=== PATIENT | female | born 1985 | race Caucasian/White ===

== ENCOUNTER → 2016-12-25 | Outpatient (CLI) | payer SELFPAY ==
[2016-05-25 10:42] VITALS: BP 115/75
[~2016-12-25] MED LIST: GABA-585 PO; HYDR-971 PO; LISI1TAB3 PO; NAPR500T PO; OMEP20CA9 PO; ONDA4TAB7 PO; ONDA8TAB12 PO; OXYC-323 PO; OXYC1TAB7 PO; PROVENTIL HFA6.7 GM IH; SERT100T PO
[2016-12-25 11:38] LABS: BASO # 0.1 x10^3/uL (0.0-0.2); BASO % 1 % (0-3); EOS % 5 % (0-3); HEMATOCRIT 40.6 % (36.0-47.0); HEMOGLOBIN 13.7 g/dL (12.0-15.5); LYMPH # 2.5 x10^3/uL (1.0-4.8); LYMPH % 37 % (24-48); MEAN CORPUSCULAR HEMOGLOBIN 29 pg (25-35); MEAN CORPUSCULAR HGB CONC 34 g/dL (31-37); MEAN CORPUSCULAR VOLUME 86 fL (79-100); MONO % 8 % (0-9); NEUT % 49 % (31-73); PLATELET COUNT 273 x10^3/uL (140-400); RED BLOOD COUNT 4.73 x10^6/uL (3.50-5.40); RED CELL DISTRIBUTION WIDTH 14.6 % (11.5-14.5); WHITE BLOOD COUNT 6.9 x10^3/uL (4.0-11.0)
[2016-12-25 11:58] LABS: ALBUMIN 3.8 g/dL (3.4-5.0); CALCIUM 8.3 mg/dL (8.5-10.1); CREATININE 0.8 mg/dL (0.6-1.0); GFR 83.1; POTASSIUM 3.9 mmol/L (3.5-5.1); TOTAL BILIRUBIN 0.5 mg/dL (0.2-1.0); TOTAL PROTEIN 7.6 g/dL (6.4-8.2)
== END | disposition home or self-care (01) ==
LOC: LAB 11:08
PROVIDERS: ATTEND Family Medicine
DX: R93.8 Abnormal findings on diagnostic imaging of other specified body structures (principal); R11.2 Nausea with vomiting, unspecified
CPT/HCPCS: 36415; 80053; 85027

== ENCOUNTER → 2017-06-04 | Outpatient (CLI) | payer OTHER ==
[2016-05-25 10:42] VITALS: BP 115/75
[~2017-06-04] MED LIST changes: +NAPR-683 PO; -NAPR500T PO
--- NOTE | 2017-06-04 21:58 | RAD ---
CT head INDICATION: Head injury at work yesterday, nausea and severe headache. TECHNIQUE: CT head without IV contrast. COMPARISON: Previous CT had from 08/27/2015. FINDINGS: No pathologic extra-axial or intra-axial fluid collection. The ventricles and basal cisterns are within normal limits. No acute intracranial bleed. No focal loss of brady-white differentiation. The visualized orbits are within normal limits. No calvarial fractures. Visualized paranasal sinuses and mastoid air cells are clear. IMPRESSION: No acute intracranial process. Electronically signed by: Zaheer Anderson DO (06/04/2017 9:55 PM) [facility]
== END | disposition home or self-care (01) ==
LOC: RAD 18:21
PROVIDERS: ATTEND Preventive Medicine Occupational Medicine
DX: S09.90XA Unspecified injury of head, initial encounter (principal); R11.0 Nausea; X58.XXXA Exposure to other specified factors, initial encounter; Y93.89 Activity, other specified; Y92.89 Other specified places as the place of occurrence of the external cause; Y99.8 Other external cause status
CPT/HCPCS: 70450

== ENCOUNTER 2018-04-23 10:05 | Emergency (ER) | payer OTHER ==
[~2018-04-23] VITALS: Ht 180.3 cm; Wt 128.8 kg
[2018-04-23] MEDS: methylPREDNISolone SOD SUCC PF 125 MG/2 ML VIAL. IV ONE (10:46)
[2018-04-23] MEDS: FAMOTIDINE 20 MG/2 ML VIAL IVP ONE (10:46)
[2018-04-23] MEDS: IV NORMAL SALINE 1000ML BAG 1,000 ML IV ONE (10:46)
[2018-04-23] MEDS: NAPROXEN 500 MG TABLET PO STA (11:21)
[2018-04-23 12:20] VITALS: BP 111/77
[2018-04-23] MEDS ORDERED: PRED50TA PO (12:22)
--- NOTE | 2018-04-23 12:23 | PHYS DOC ---
Past Medical History Past Medical History: Diverticulosis, Fibromyalgia, Hypertension Past Surgical History: Cholecystectomy, , Tonsillectomy Alcohol Use: None Drug Use: None Adult General Chief Complaint Chief Complaint: ALLERGIC REACTION HPI HPI Patient is a 32 year old female who presents today complaining of allergic reaction to strawberries. Patient has known allergies to strawberries. She states she was at work today cutting strawberries with gloves on, she states she developed shortness of breath, her bilateral hands started swelling and developed hives to bilateral upper extremities. Patient states she was given Benadryl 50 mg. She states she was also given an EpiPen injection. She states EMS gave her breathing treatment. She states she is feeling better. Review of Systems Review of Systems Constitutional: Denies fever or chills [] Eyes: Denies change in visual acuity, redness, or eye pain [] HENT: Denies nasal congestion or sore throat [] Respiratory: Reports shortness of breath. Reports allergic reaction to strawberries. Denies cough Cardiovascular: No additional information not addressed in HPI [] GI: Denies abdominal pain, nausea, vomiting, bloody stools or diarrhea [] : Denies dysuria or hematuria [] Musculoskeletal: Denies back pain or joint pain [] Integument: Reports rash and hives. Neurologic: Denies headache, focal weakness or sensory changes [] Endocrine: Denies polyuria or polydipsia [] All other systems were reviewed and found to be within normal limits, except as documented in this note. Current Medications Current Medications Current Medications Medications (Trade) Dose Ordered Sig/Kim Start Time Stop Time Status Last Admin Dose Admin Famotidine (Pepcid Vial) 20 mg 1X ONCE 04/23/18 10:30 04/23/18 10:31 DC 04/23/18 10:46 20 MG Methylprednisolone Sodium Succinate (SOLU-Medrol 125MG VIAL) 125 mg 1X ONCE 04/23/18 10:30 04/23/18 10:31 DC 04/23/18 10:46 125 MG Naproxen (Naprosyn) 500 mg 1X STAT 04/23/18 11:13 04/23/18 11:17 DC 04/23/18 11:21 500 MG Sodium Chloride 1,000 ml @ 1,000 mls/hr 1X ONCE 04/23/18 11:00 11/15/18 11:59 DC 04/23/18 10:46 1,000 MLS/HR Allergies Allergies Allergies Coded Allergies Type Severity Reaction Last Updated Verified Penicillins Allergy Severe Shortness of Air 05/20/16 Yes propoxyphene Allergy Severe Hives 05/20/16 Yes strawberry Allergy Severe Swelling 05/23/16 Yes topiramate Allergy Intermediate 05/20/16 Yes peas Allergy Unknown Rash 05/24/16 Yes Physical Exam Physical Exam Constitutional: Well developed, well nourished, no acute distress, non-toxic appearance. [] HENT: Normocephalic, atraumatic, bilateral external ears normal, oropharynx moist, no oral exudates, nose normal. Airway is open Eyes: PERRLA, EOMI, conjunctiva normal, no discharge. [] Neck: Normal range of motion, no tenderness, supple, no stridor. [] Cardiovascular:Heart rate regular rhythm, no murmur [] Lungs & Thorax: Bilateral breath sounds clear to auscultation [] Abdomen: Bowel sounds normal, soft, no tenderness, no masses, no pulsatile masses. [] Skin: Warm, dry, forearm and cheeks with slight erythema. Back: No tenderness, no CVA tenderness. [] Extremities: No tenderness, no cyanosis, no clubbing, ROM intact, no edema. [] Neurologic: Alert and oriented X 3, normal motor function, normal sensory function, no focal deficits noted. [] Psychologic: Affect normal, judgement normal, mood normal. [] Current Patient Data Vital Signs Vital Signs Date Time Temp Pulse Resp B/P (MAP) Pulse Ox O2 Delivery O2 Flow Rate FiO2 04/23/18 11:50 78 16 104/54 (71) 100 Room Air 04/23/18 10:19 98.2 98.2 EKG EKG [] Radiology/Procedures Radiology/Procedures [] Course & Med Decision Making Course & Med Decision Making Pertinent Labs and Imaging studies reviewed. (See chart for details) This is a 32-year-old female patient presenting to the ED today with an allergic reaction to strawberries. See history of present illness. Patient has known allergies with strawberry. Was cutting them at work. Developed shortness of breath, swelling to hands and hives. Upon arrival to the ED patient had already been given Benadryl, Epipen injection and a breathing treatment. We gave her Solu-Medrol and IV fluids also given Pepcid. Feeling better. Will be discharged with prednisone. Instructed to take Benadryl and Pepcid until symptoms are completely gone. Follow-up with primary care doctor next week. Encouraged to avoid strawberries. Dragon Disclaimer Dragon Disclaimer This electronic medical record was generated, in whole or in part, using a voice recognition dictation system. Departure Departure Impression: Primary Impression: Allergic reaction Disposition: HOME, SELF-CARE Condition: STABLE Referrals: Sydnie JAIME MD (PCP) Follow-up with your doctor next week Patient Instructions: Food Allergy Additional Instructions: You were evaluated in the emergency for allergic reaction to strawberries. Please do not use or touch strawberries. Continue taking Benadryl until symptoms are gone. Take Pepcid until symptoms are gone. Also take the prescribed prednisone until completed. Scripts Prednisone (PREDNISONE) 50 Mg Tablet 1 TAB PO DAILY, #5 TAB Prov: LITZY WARNER APRN 04/23/18 Problem Qualifiers Primary Impression: Allergic reaction Encounter type: initial encounter Qualified Codes: T78.40XA - Allergy, unspecified, initial encounter LITZY WARNER [employer] Apr 23, 2018 12:22
== END 2018-04-23 12:33 | disposition home or self-care (01) ==
LOC: ER 10:05
DX: T78.49XA Other allergy, initial encounter (principal); R06.02 Shortness of breath; I10 Essential (primary) hypertension; Z90.49 Acquired absence of other specified parts of digestive tract; Z90.89 Acquired absence of other organs; Z98.890 Other specified postprocedural states; Z88.0 Allergy status to penicillin; Z88.8 Allergy status to other drugs, medicaments and biological substances; Z91.018 Allergy to other foods; X58.XXXA Exposure to other specified factors, initial encounter
CPT/HCPCS: 96374; 96375; 99284; J2930; J3490; J7030

== ENCOUNTER → 2020-01-31 | Outpatient (CLI) | payer MEDICAID, OTHER ==
[~2020-01-31] MED LIST changes: +HYDR-3164 PO; -HYDR-971 PO; +LISI1TAB23 PO; -LISI1TAB3 PO; +OMEP20CA16 PO; -OMEP20CA9 PO; -OXYC-323 PO; +OXYC1TAB15 PO; +PRED50TA PO
--- NOTE | 2020-01-31 14:52 | RAD ---
INDICATION: Reason: B/L EDEMA / Spl. Instructions: / History: COMPARISON: None. TECHNIQUE: Grayscale, color and doppler ultrasound images were obtained of the bilateral lower extremity venous vasculature. RIGHT: No thrombus identified in the common femoral vein, femoral vein, popliteal vein or visualized calf veins. LEFT: No thrombus identified in the common femoral vein, femoral vein, popliteal vein or visualized calf veins. IMPRESSION: * No thrombus identified in deep venous system of bilateral lower extremities. Electronically signed by: Bryant Pastor MD (01/31/2020 2:49 PM) [id number]
== END | disposition home or self-care (01) ==
LOC: US 14:14
PROVIDERS: ATTEND Family Medicine
DX: R60.0 Localized edema (principal)
CPT/HCPCS: 93970

== ENCOUNTER 2020-03-06 21:15 | Emergency (ER) | payer MEDICAID ==
[~2020-03-06] VITALS: Ht 180.3 cm; Wt 131.8 kg
[2020-03-06 21:20] VITALS: BP 159/94
[2020-03-06 21:54] LABS: BILIRUBIN,URINE NEGATIVE (NEG); CLARITY,URINE CLEAR; COLOR,URINE YELLOW; NITRITE,URINE NEGATIVE (NEG); PROTEIN,URINE NEGATIVE (NEG-TRACE)
--- NOTE | 2020-03-06 21:58 | PHYS DOC ---
Past Medical History Past Medical History: Diverticulosis, Fibromyalgia, GERD, Hypertension Past Surgical History: Cholecystectomy, , Tonsillectomy Smoking Status: Former Smoker Alcohol Use: None Drug Use: None General Adult EDM: Chief Complaint: PAIN ON URINATION HPI: HPI: Patient is a 34 year old female who presents to the ED today complaining of a rash on the right lower abdomen to her back that began 1-1/2 weeks ago. Patient states she feels her right kidney is a burning. Denies any fever. Review of Systems: Review of Systems: Constitutional: Denies fever or chills. [] Eyes: Denies change in visual acuity. [] HENT: Denies nasal congestion or sore throat. [] Respiratory: Denies cough or shortness of breath. [] Cardiovascular: Denies chest pain or edema. [] GI: Denies abdominal pain, nausea, vomiting, bloody stools or diarrhea. [] : Reports right kidney is burning. Denies dysuria. [] Musculoskeletal: Denies back pain or joint pain. [] Integument: Reports rash to the right lower abdomen Neurologic: Denies headache, focal weakness or sensory changes. [] Psychiatric: Denies depression or anxiety. [] Heart Score: Risk Factors: Risk Factors: DM, Current or recent (<one month) smoker, HTN, HLP, family history of CAD, obesity. Risk Scores: Score 0 - 3: 2.5% MACE over next 6 weeks - Discharge Home Score 4 - 6: 20.3% MACE over next 6 weeks - Admit for Clinical Observation Score 7 - 10: 72.7% MACE over next 6 weeks - Early Invasive Strategies Allergies: Allergies: Allergies Coded Allergies Type Severity Reaction Last Updated Verified Penicillins Allergy Severe Shortness of Air 05/20/16 Yes propoxyphene Allergy Severe Hives 05/20/16 Yes strawberry Allergy Severe Swelling 05/23/16 Yes topiramate Allergy Intermediate 05/20/16 Yes peas Allergy Unknown Rash 05/24/16 Yes Physical Exam: PE: Constitutional: Well developed, well nourished, no acute distress, non-toxic appearance. [] HENT: Normocephalic, atraumatic, bilateral external ears normal, oropharynx moist, no oral exudates, nose normal. [] Eyes: PERRLA, EOMI, conjunctiva normal, no discharge. [] Neck: Normal range of motion, no tenderness, supple, no stridor. [] Cardiovascular:Heart rate regular rhythm, no murmur [] Lungs & Thorax: Bilateral breath sounds clear to auscultation [] Abdomen: Bowel sounds normal, soft, no tenderness, no masses, no pulsatile masses. [] Skin: Right lower abdomen with erythematous rash consistent of shingles. Back: No tenderness, no CVA tenderness. [] Extremities: No tenderness, no cyanosis, no clubbing, ROM intact, no edema. [] Neurologic: Alert and oriented X 3, normal motor function, normal sensory function, no focal deficits noted. [] Psychologic: Affect normal, judgement normal, mood normal. [] Current Patient Data: Labs: Laboratory Tests Test 03/06/20 21:55 POC Urine HCG, Qualitative Hcg negative (Negative) Vital Signs: Vital Signs Date Time Temp Pulse Resp B/P (MAP) Pulse Ox O2 Delivery O2 Flow Rate FiO2 03/06/20 21:20 99.2 100 18 159/94 (115) 97 Room Air 99.2 EKG: EKG: [] Radiology/Procedures: Radiology/Procedures: [] Course & Med Decision Making: Course & Med Decision Making Pertinent Labs and Imaging studies reviewed. (See chart for details) Patient has a shingles rash for 1-1/2 weeks. Also complaining of burning in her kidneys. UA is negative. Discharge with supportive care medicines for shingles including prednisone, tramadol and instructed to follow-up with the PCP. Inform acyclovir at this point has no significant benefit but will write her the rx anyway. She got upset questioning why i did not move close to her rash informed her shingles is a contagious disease and i have a new born baby i can not get close and risk getting the rash in any case she had no mask on during the visit as she was drinking water with ice chips her CDC recommendation i have to keep my six feet distance. Nelia Disclaimer: Nelia Disclaimer: This electronic medical record was generated, in whole or in part, using a voice recognition dictation system. Departure Departure Impression: Primary Impression: Shingles Qualified Codes: B02.9 - Zoster without complications Disposition: 01 HOME, SELF-CARE Condition: STABLE Referrals: Sydnie JAIME MD (PCP) Follow-up in 1 to 2 weeks Patient Instructions: Shingles, [id number] Additional Instructions: You were evaluated in the emergency room for shingles. Your urine analysis is negative for infection. Shingles rash tends to cause pain to the affected region and surrounding areas. We wrote you some medicines, take them as prescribed. Follow-up with your doctor in 1 to 2 weeks Scripts Tramadol Hcl (ULTRAM) 50 Mg Tablet 1 TAB PO PRN Q6HRS PRN for pain MDD 4 Tablet(s), #28 TAB 0 Refills Prov: LITZY WARNER APRN 03/06/20 Methylprednisolone (MEDROL) 4 Mg Tab.ds.pk 1 PKG PO UD, #1 PKG Prov: LITZY WARNER APRN 03/06/20 Acyclovir (ACYCLOVIR) 800 Mg Tablet 1 TAB PO 5XDAY, #50 TAB Prov: LITZY WARNER APRN 03/06/20 Justicifation of Admission Dx: Justifications for Admission: Justification of Admission Dx: N/A LITZY WARNER APRN Mar 06, 2020 21:58
[2020-03-06 21:59] LABS: BACTERIA,URINE FEW /HPF (0-FEW); SQUAMOUS EPITHELIAL CELL,UR MANY /LPF
[2020-03-06] MEDS ORDERED: TRAM-48 PO (22:08)
[2020-03-06] MEDS ORDERED: METH4TAB2 PO (22:08)
[2020-03-06] MEDS ORDERED: ACYC800T PO (22:08)
== END 2020-03-06 22:15 | disposition home or self-care (01) ==
LOC: ER 21:15
DX: B02.9 Zoster without complications (principal); R21 Rash and other nonspecific skin eruption; L53.9 Erythematous condition, unspecified; M79.7 Fibromyalgia; K21.9 Gastro-esophageal reflux disease without esophagitis; I10 Essential (primary) hypertension; Z90.49 Acquired absence of other specified parts of digestive tract; Z98.890 Other specified postprocedural states; Z87.891 Personal history of nicotine dependence; Z88.0 Allergy status to penicillin; Z88.8 Allergy status to other drugs, medicaments and biological substances; Z91.018 Allergy to other foods
CPT/HCPCS: 81001; 81025; 99283

== ENCOUNTER → 2020-03-08 | Outpatient (CLI) | payer MEDICAID ==
[2020-03-06 21:20] VITALS: BP 159/94
[~2020-03-08] MED LIST changes: +ACYC800T PO; +METH4TAB2 PO; +TRAM-48 PO
--- NOTE | 2020-03-08 12:26 | RAD ---
MR#: [id number] Date of Study: 03/08/2020 Ordering Physician: ELSY HOGUE, Referring Physician: ELSY HOGUE, Tech: Craig Edwards MBA, RDMS, RVT, RDCS, RTR APPROVED REPORT Patient Location : OUT-PATIENT Indications Lower Extremity Edema : Bilateral Findings The right great saphenous vein measures 7.2 mm and does not show any evidence of reflux. The left great saphenous vein measures 6.7 mm and does not show any evidence of reflux. Bilateral lesser saphenous veins did not show any evidence of reflux. Limited saphenofemoral junction evaluation does not reveal any evidence of thrombus on grayscale imag es. Critical Notification Critical Value: No <Conclusion> 1. Negative for reflux in the bilateral greater and lesser saphenous veins Signed by : Aly Tao, Electronically Approved : 03/08/2020 12:26:23
--- NOTE | 2020-03-08 12:29 | CARD ---
MR#: [id number] Date of Study: 03/08/2020 Ordering Physician: ELSY HOGUE, Referring Physician: ELSY HOGUE Tech: Rosenda Abraham RDCS APPROVED REPORT EXAM: Two-dimensional and M-mode echocardiogram with Doppler and color Doppler. Other Information Quality : Good INDICATION Peripheral Edema RISK FACTORS Hypertension Obesity 2D DIMENSIONS RVDd2.4 (2.9-3.5cm)Left Atrium(2D)3.5 (1.6-4.0cm) IVSd1.2 (0.7-1.1cm)Aortic Root(2D)2.6 (2.0-3.7cm) LVDd3.6 (3.9-5.9cm)LVOT Diameter2.2 (1.8-2.4cm) PWd1.2 (0.7-1.1cm)LVDs2.1 (2.5-4.0cm) FS (%) 30.0 %SV40.1 ml LVEF(%)60.0 (>50%) Aortic Valve AoV Peak Moncho.137.8cm/sAoV VTI21.6cm AO Peak GR.7.6mmHgLVOT Peak Moncho.122.7cm/s AO Mean GR.5mmHgAVA (VMAX)3.25cm2 HARRIS (VTI)3.80cm2 Mitral Valve MV E Oysalsma56.9cm/sMV DECEL [id number] MV A Pnfozyjk37.8cm/sE/A Ratio0.8 Pulmonary Vein S1 Ctfhnjlc09.8cm/sD2 Ylalfrso55.6cm/s LEFT VENTRICLE The left ventricle is normal size. There is mild concentric left ventricular hypertrophy. The left ve ntricular systolic function is normal and the ejection fraction is within normal range. The Ejection Fraction is 60-65%. There is normal LV segmental wall motion. Transmitral Doppler flow pattern is Gra de I-abnormal relaxation pattern. RIGHT VENTRICLE The right ventricle is normal size. The right ventricular systolic function is normal. ATRIA The left atrium size is normal. The right atrium size is normal. The interatrial septum is intact wit h no evidence for an atrial septal defect or patent foramen ovale as noted on 2-D or Doppler imaging. AORTIC VALVE The aortic valve is normal in structure and function. Doppler and Color Flow revealed no significant aortic regurgitation. There is no significant aortic valvular stenosis. MITRAL VALVE The mitral valve is normal in structure and function. There is no evidence of mitral valve prolapse. There is no mitral valve stenosis. Doppler and Color Flow revealed no mitral valve regurgitation note d. TRICUSPID VALVE The tricuspid valve is normal in structure and function. Doppler and Color Flow revealed no tricuspid valve regurgitation noted. There is no tricuspid valve stenosis. PULMONIC VALVE The pulmonic valve is not well visualized. Doppler and Color Flow revealed no pulmonic valvular regur gitation. There is no pulmonic valvular stenosis. GREAT VESSELS The aortic root is normal in size. The ascending aorta is normal in size. The IVC was not visualized. PERICARDIAL EFFUSION There is no evidence of significant pericardial effusion. Critical Notification Critical Value: No <Conclusion> The left ventricular systolic function is normal and the ejection fraction is within normal range. Th e Ejection Fraction is 60-65%. There is normal LV segmental wall motion. No significant valvular disease. Signed by : Aly Tao, Electronically Approved : 03/08/2020 12:29:31
== END | disposition home or self-care (01) ==
LOC: ECHO 10:45
PROVIDERS: ATTEND Internal Medicine Cardiovascular Disease
DX: R60.0 Localized edema (principal); I51.7 Cardiomegaly
CPT/HCPCS: 93306; 93970